=== PATIENT | male | born 1955 | race Caucasian/White ===

== ENCOUNTER 2022-05-18 08:14 | Day surgery (SDC) | payer MEDICARE, MEDICAID ==
[2022-05-18] VITALS (12 sets, daily range): BP systolic 95–148; BP diastolic 49–76
[~2022-05-18] VITALS: Ht 175.3 cm; Wt 104.4 kg
[2022-05-18] MEDS ORDERED: normal saline 1,000 ML IV SCH (08:50)
[2022-05-18] MEDS ORDERED: diphenhydrAMINE 25mg capsule PO PRN (08:50)
[2022-05-18 09:17] LABS: BASOPHILS % (AUTO) 0.4 % (0-1); EOSINOPHILS # (AUTO) 0.1 X10'3 (0-0.9); EOSINOPHILS % (AUTO) 1.7 % (0-6); HEMATOCRIT 34.6 % (42.0-52.0); HEMOGLOBIN 11.9 g/dl (14.0-17.9); LYMPHOCYTES # (AUTO) 1.1 X10'3 (1.1-4.8); LYMPHOCYTES % (AUTO) 21.7 % (21-51); MEAN CORPUSCULAR HGB CONC 34.2 g/dL (33.0-36.5); MEAN CORPUSCULAR VOLUME 90.5 FL (78-98); MONOCYTES # (AUTO) 0.4 X10'3 (0-0.9); MONOCYTES % (AUTO) 7.2 % (2-12); NEUTROPHILS # (AUTO) 3.5 X10'3 (1.8-7.7); PLATELET COUNT 123 X10'3 (140-440); RED BLOOD COUNT 3.82 X10'6 (4.70-6.10); RED CELL DISTRIBUTION WIDTH 13.3 % (11.5-14.5); WHITE BLOOD COUNT 5.1 X10'3 (4.5-11.0)
[2022-05-18] MEDS ORDERED: ONDA4TAB12 PO (09:25)
[2022-05-18] MEDS ORDERED: ASPI-1265 PO (09:25)
[2022-05-18] MEDS ORDERED: TIZA4CAP6 PO (09:25)
[2022-05-18] MEDS ORDERED: ZOLP5TAB2 PO (09:25)
[2022-05-18] MEDS ORDERED: AMYL1CAP54 PO (09:25)
[2022-05-18] MEDS ORDERED: [UNRECOGNIZED DRUG - CODE] PO (09:25)
[2022-05-18] MEDS ORDERED: ISOS30TA84 PO (09:25)
[2022-05-18] MEDS ORDERED: RILP25TA PO (09:25)
[2022-05-18] MEDS ORDERED: LORA10TA7 PO (09:25)
[2022-05-18] MEDS ORDERED: OXYC-657 PO (09:25)
[2022-05-18] MEDS ORDERED: PRAZ2CAP2 PO (09:25)
[2022-05-18] MEDS ORDERED: SERT25TA84 PO (09:25)
[2022-05-18] MEDS ORDERED: OMEP10CA5 PO (09:25)
[2022-05-18] MEDS ORDERED: [UNRECOGNIZED DRUG - CODE] PO (09:25)
[2022-05-18] MEDS ORDERED: [UNRECOGNIZED DRUG - OTHER] (09:25)
[2022-05-18] MEDS ORDERED: HYDR-3965 PO (09:25)
[2022-05-18 09:28] LABS: ALBUMIN 3.4 G/DL (3.4-5.0); ANION GAP 7 (8-16); BLOOD UREA NITROGEN 15 MG/DL (7-18); BUN/CREATININE RATIO 13.3 (5.4-32.0); CHLORIDE 108 MMOL/L (99-107); CREATININE 1.13 MG/DL (0.60-1.10); GLUCOSE 116 MG/DL (70-104); MAGNESIUM 1.9 MG/DL (1.5-2.4); POTASSIUM 3.7 MMOL/L (3.5-5.1); SODIUM 144 MMOL/L (135-145); eGFR 65 ML/MIN
[2022-05-18] MEDS ORDERED: midazolam 1 mg/ML 2ml injection ONE ×4 (09:57→11:15)
[2022-05-18] MEDS ORDERED: fentaNYL/PF 50MCG/1 ML 2ML syringe ONE (09:57)
[2022-05-18] MEDS ORDERED: heparin 1,000unit/ml 10ml vial 10 ML ONE (09:57)
[2022-05-18] MEDS ORDERED: LIDOcaine 1% 30ml preserv. free vial ONE (09:57)
[2022-05-18] MEDS ORDERED: iohexol 350MG/ML 100ml bottle IV ONE ×3 (09:57→11:31)
[2022-05-18] MEDS ORDERED: HYDROmorphone 1 mg/ml syringe ONE (10:40)
[2022-05-18] MEDS ORDERED: nitroGLYCERIN-Tridil 50MG/D5W 250 ML IV ONE (11:35)
[2022-05-18] MEDS ORDERED: ticagrelor 90mg tablet ONE (11:44)
[2022-05-18] MEDS ORDERED: ondansetron/PF 4mg/2ml inj IV PRN (12:20)
[2022-05-18] MEDS ORDERED: HYDROcodone/acetaminophen 5mg/325mg tablet PO PRN (12:20)
[2022-05-18] MEDS ORDERED: normal saline 1000ml 1,000 ML IV SCH (12:20)
[2022-05-18] MEDS ORDERED: proCHLORperazine 10 MG/2 ml inj IV PRN (12:20)
[2022-05-18] MEDS ORDERED: HYDROcodone/acetaminophen 10/325mg tab PO PRN (12:20)
[2022-05-18] MEDS ORDERED: pantoprazole 40mg Tablet.DR PO ONE (12:25)
[2022-05-18] MEDS ORDERED: mag hydrox/Alum hydrox/simeth 30ml oral suspension PO ONE (14:00)
== END 2022-05-18 18:12 | disposition home or self-care (01) ==
LOC: SSTAY O 08:14
PROVIDERS: ATTEND Internal Medicine Cardiovascular Disease
DX: I25.10 Atherosclerotic heart disease of native coronary artery without angina pectoris (principal); I25.82 Chronic total occlusion of coronary artery; I48.91 Unspecified atrial fibrillation; I10 Essential (primary) hypertension; E78.5 Hyperlipidemia, unspecified; Z79.899 Other long term (current) drug therapy; Z98.890 Other specified postprocedural states
CPT/HCPCS: 36415; 80048; 83735; 85025; 85610; 92978; 93005; 93459; 99152; 99153; C1725; C1751; C1753; C1760; C1769; C1874; C1894; C9600; J1170; J1644; J2250; J3010; J3490; J7030; Q0163; Q9967; A4620; A6258

== ENCOUNTER 2022-05-19 13:38 | Emergency (ER) | payer MEDICARE, MEDICAID ==
[~2022-05-19] VITALS: Ht 175.3 cm; Wt 104.5 kg
[~2022-05-19 13:38] MED LIST: AMYL1CAP54 PO; ASPI-1265 PO; HYDR-3965 PO; ISOS30TA84 PO; LORA10TA7 PO; OMEP10CA5 PO; ONDA4TAB12 PO; OXYC-657 PO; PRAZ2CAP2 PO; RILP25TA PO; SERT25TA84 PO; TIZA4CAP6 PO; ZOLP5TAB2 PO; [UNRECOGNIZED DRUG - CODE] PO; [UNRECOGNIZED DRUG - CODE] PO; [UNRECOGNIZED DRUG - OTHER]
[2022-05-19 15:51] VITALS: BP 164/77
== END 2022-05-19 16:00 | disposition home or self-care (01) ==
LOC: ER 13:39
DX: S30.1XXA Contusion of abdominal wall, initial encounter (principal); Z88.1 Allergy status to other antibiotic agents; Z88.8 Allergy status to other drugs, medicaments and biological substances; X58.XXXA Exposure to other specified factors, initial encounter; Y93.89 Activity, other specified; Y92.89 Other specified places as the place of occurrence of the external cause; Y99.8 Other external cause status
CPT/HCPCS: 99281

== ENCOUNTER 2022-05-26 08:45 | Emergency (ER) | payer MEDICARE, MEDICAID ==
[~2022-05-26] VITALS: Ht 175.3 cm; Wt 104.0 kg
[2022-05-26 09:46] LABS: BASOPHILS % (AUTO) 0.2 % (0-1); EOSINOPHILS # (AUTO) 0.1 X10'3 (0-0.9); EOSINOPHILS % (AUTO) 0.8 % (0-6); HEMATOCRIT 40.4 % (42.0-52.0); HEMOGLOBIN 13.9 g/dl (14.0-17.9); LYMPHOCYTES # (AUTO) 1.2 X10'3 (1.1-4.8); LYMPHOCYTES % (AUTO) 18.5 % (21-51); MEAN CORPUSCULAR HEMOGLOBIN 30.7 PG (27.0-31.0); MEAN CORPUSCULAR HGB CONC 34.4 g/dL (33.0-36.5); MEAN CORPUSCULAR VOLUME 89.1 FL (78-98); MEAN PLATELET VOLUME 7.3 FL (7.4-10.4); MONOCYTES # (AUTO) 0.4 X10'3 (0-0.9); NEUTROPHILS % (AUTO) 74.5 % (42-75); PLATELET COUNT 148 X10'3 (140-440); RED BLOOD COUNT 4.54 X10'6 (4.70-6.10); RED CELL DISTRIBUTION WIDTH 13.5 % (11.5-14.5); WHITE BLOOD COUNT 6.8 X10'3 (4.5-11.0)
[2022-05-26 10:06] LABS: ALANINE AMINOTRANSFERASE 31 U/L (12-78); ALBUMIN 4.1 G/DL (3.4-5.0); ALBUMIN/GLOBULIN RATIO 1.1 (1.1-1.5); ALKALINE PHOSPHATASE 127 IU/L (46-116); ANION GAP 10 (8-16); ASPARTATE AMINO TRANSFERASE 14 U/L (10-37); BILIRUBIN,TOTAL 0.8 MG/DL (0.1-1.0); BLOOD UREA NITROGEN 17 MG/DL (7-18); BUN/CREATININE RATIO 11.1 (5.4-32.0); CALCIUM 8.6 MG/DL (8.5-10.1); CHLORIDE 100 MMOL/L (99-107); CREATININE 1.53 MG/DL (0.60-1.10); GLUCOSE 116 MG/DL (70-104); POTASSIUM 3.1 MMOL/L (3.5-5.1); SODIUM 141 MMOL/L (135-145); TOTAL CARBON DIOXIDE 31.4 MMOL/L (24-32); TOTAL PROTEIN 7.7 G/DL (6.4-8.2); eGFR 46 ML/MIN
[2022-05-26] MEDS ORDERED: potassium chloride 10mEq ER tablet PO SCH (11:25)
[2022-05-26 12:10] LABS: MAGNESIUM 1.7 MG/DL (1.5-2.4)
[2022-05-26] MEDS ORDERED: CLOP75TA15 PO ×2 (12:24→14:13)
[2022-05-26 12:27] VITALS: BP 112/56
[2022-05-26 13:10] LABS: CLARITY,URINE CLEAR (Clear); COLOR,URINE YELLOW (Yellow); GLUCOSE, URINE NEGATIVE (Neg); KETONES,URINE NEGATIVE (Neg); LEUKOCYTE ESTERASE ,URINE NEGATIVE (Neg); NITRITES, URINE NEGATIVE (Neg); OCCULT BLOOD,URINE NEGATIVE (Neg); PROTEIN,URINE NEGATIVE (Neg); UROBILINOGEN,URINE 0.2 E.U/dL (0.2-1.0)
[2022-05-26 13:30] LABS: UA COLLECTION TYPE CLN CATCH MIDSTREAM
== END 2022-05-26 15:16 | disposition home or self-care (01) ==
LOC: ER 08:46
DX: R06.02 Shortness of breath (principal); Z20.822 Contact with and (suspected) exposure to COVID-19; I50.9 Heart failure, unspecified; Z88.0 Allergy status to penicillin; Z88.8 Allergy status to other drugs, medicaments and biological substances; Z79.82 Long term (current) use of aspirin; Z79.899 Other long term (current) drug therapy
CPT/HCPCS: 36415; 71045; 80053; 81003; 83735; 83880; 84484; 85025; 87635; 93005; 99285; C9803

== ENCOUNTER 2022-07-26 16:42 | Emergency (ER) | payer MEDICARE, MEDICAID ==
[~2022-07-26] VITALS: Ht 175.3 cm; Wt 103.6 kg
[~2022-07-26 16:42] MED LIST changes: +CLOP75TA15 PO
[2022-07-26 17:42] LABS: BASOPHILS % (AUTO) 0.3 % (0-1); EOSINOPHILS % (AUTO) 0.4 % (0-6); HEMATOCRIT 39.1 % (42.0-52.0); HEMOGLOBIN 13.4 g/dl (14.0-17.9); LYMPHOCYTES # (AUTO) 1.9 X10'3 (1.1-4.8); LYMPHOCYTES % (AUTO) 19.9 % (21-51); MEAN CORPUSCULAR HEMOGLOBIN 31.2 PG (27.0-31.0); MEAN CORPUSCULAR HGB CONC 34.2 g/dL (33.0-36.5); MEAN CORPUSCULAR VOLUME 91.3 FL (78-98); MEAN PLATELET VOLUME 7.1 FL (7.4-10.4); MONOCYTES # (AUTO) 0.5 X10'3 (0-0.9); MONOCYTES % (AUTO) 5.4 % (2-12); NEUTROPHILS # (AUTO) 6.9 X10'3 (1.8-7.7); PLATELET COUNT 139 X10'3 (140-440); RED BLOOD COUNT 4.28 X10'6 (4.70-6.10); RED CELL DISTRIBUTION WIDTH 14.6 % (11.5-14.5); WHITE BLOOD COUNT 9.4 X10'3 (4.5-11.0)
[2022-07-26 17:48] LABS: ALANINE AMINOTRANSFERASE 23 U/L (12-78); ALBUMIN 3.8 G/DL (3.4-5.0); ALBUMIN/GLOBULIN RATIO 1.3 (1.1-1.5); ALKALINE PHOSPHATASE 100 IU/L (46-116); ANION GAP 5 (8-16); ASPARTATE AMINO TRANSFERASE 12 U/L (10-37); BILIRUBIN,TOTAL 0.5 MG/DL (0.1-1.0); BLOOD UREA NITROGEN 20 MG/DL (7-18); BUN/CREATININE RATIO 18.5 (5.4-32.0); CALCIUM 8.7 MG/DL (8.5-10.1); CHLORIDE 103 MMOL/L (99-107); CREATININE 1.08 MG/DL (0.60-1.10); GLUCOSE 110 MG/DL (70-104); SODIUM 139 MMOL/L (135-145); TOTAL CARBON DIOXIDE 31.1 MMOL/L (24-32); TOTAL PROTEIN 6.7 G/DL (6.4-8.2); eGFR 69 ML/MIN
[2022-07-26] MEDS ORDERED: oxyCODONE SR 10mg (sust. release) tab PO ONE (18:05)
[2022-07-26] MEDS ORDERED: nitroGLYCERIN 0.4mg SUBLingual tab SL PRN (18:05)
[2022-07-26 21:26] VITALS: BP 131/72
== END 2022-07-26 21:15 | disposition home or self-care (01) ==
LOC: ER 16:42
DX: I20.8 Other forms of angina pectoris (principal); I10 Essential (primary) hypertension; Z88.1 Allergy status to other antibiotic agents; Z88.8 Allergy status to other drugs, medicaments and biological substances; Z79.82 Long term (current) use of aspirin; Z79.899 Other long term (current) drug therapy; Z79.1 Long term (current) use of non-steroidal anti-inflammatories (NSAID); Z79.2 Long term (current) use of antibiotics
CPT/HCPCS: 36415; 71045; 80053; 83880; 84484; 85025; 93005; 99285

== ENCOUNTER 2022-08-18 11:41 | Observation (INO) | payer MEDICARE, MEDICAID ==
[~2022-08-18] VITALS: Ht 175.3 cm; Wt 100.0 kg
[~2022-08-18 11:41] MED LIST changes: +AMYL1CAP52 PO; -AMYL1CAP54 PO; -ASPI-1265 PO; +ASPI81TA52 PO; +ATOR-2 PO; +BICT1TAB PO; -CLOP75TA15 PO; +CLOP75TA34 PO; +ESCI-8 PO; +HYDR-3686 PO; +LISI5TAB22 PO; -RILP25TA PO; -SERT25TA84 PO; -TIZA4CAP6 PO; +TORS100T15 PO; -ZOLP5TAB2 PO; -[UNRECOGNIZED DRUG - CODE] PO; -[UNRECOGNIZED DRUG - CODE] PO; -[UNRECOGNIZED DRUG - OTHER]
--- NOTE | 2022-08-18 12:11 | NUR ---
EKG 1147 LM
[2022-08-18 13:19] LABS: BASOPHILS % (AUTO) 0.4 % (0-1); EOSINOPHILS # (AUTO) 0.1 X10'3 (0-0.9); EOSINOPHILS % (AUTO) 0.8 % (0-6); HEMATOCRIT 41.9 % (42.0-52.0); HEMOGLOBIN 13.9 g/dl (14.0-17.9); LYMPHOCYTES # (AUTO) 1.7 X10'3 (1.1-4.8); LYMPHOCYTES % (AUTO) 24.4 % (21-51); MEAN CORPUSCULAR HEMOGLOBIN 30.7 PG (27.0-31.0); MEAN CORPUSCULAR HGB CONC 33.1 g/dL (33.0-36.5); MEAN CORPUSCULAR VOLUME 92.7 FL (78-98); MEAN PLATELET VOLUME 6.9 FL (7.4-10.4); MONOCYTES # (AUTO) 0.4 X10'3 (0-0.9); NEUTROPHILS # (AUTO) 4.9 X10'3 (1.8-7.7); NEUTROPHILS % (AUTO) 68.4 % (42-75); PLATELET COUNT 147 X10'3 (140-440); RED BLOOD COUNT 4.52 X10'6 (4.70-6.10); RED CELL DISTRIBUTION WIDTH 14.2 % (11.5-14.5); WHITE BLOOD COUNT 7.1 X10'3 (4.5-11.0)
[2022-08-18 13:43] LABS: ALANINE AMINOTRANSFERASE 25 U/L (12-78); ALBUMIN 3.7 G/DL (3.4-5.0); ALBUMIN/GLOBULIN RATIO 1.1 (1.1-1.5); ALKALINE PHOSPHATASE 98 IU/L (46-116); ANION GAP 9 (8-16); ASPARTATE AMINO TRANSFERASE 15 U/L (10-37); BILIRUBIN,TOTAL 0.4 MG/DL (0.1-1.0); BLOOD UREA NITROGEN 13 MG/DL (7-18); BUN/CREATININE RATIO 12.1 (5.4-32.0); CALCIUM 8.7 MG/DL (8.5-10.1); CHLORIDE 105 MMOL/L (99-107); CREATININE 1.07 MG/DL (0.60-1.10); GLUCOSE 104 MG/DL (70-104); POTASSIUM 3.8 MMOL/L (3.5-5.1); SODIUM 142 MMOL/L (135-145); TOTAL CARBON DIOXIDE 27.9 MMOL/L (24-32); eGFR 69 ML/MIN
[2022-08-18] MEDS ORDERED: MAGN64TA8 PO (16:07)
[2022-08-18] MEDS ORDERED: HYDROcodone/acetaminophen 5mg/325mg tablet PO ONE (17:38)
[2022-08-18] MEDS ORDERED: hydrOXYzine 25 MG tablet PO PRN (18:00)
[2022-08-18] MEDS ORDERED: nitroGLYCERIN 0.4mg SUBLingual tab SL PRN (18:00)
[2022-08-18] MEDS ORDERED: magnesium hydroxide 30ml (MOM) UD suspension PO PRN (18:05)
[2022-08-18] MEDS ORDERED: HYDROcodone/acetaminophen 5mg/325mg tablet PO PRN (18:05)
[2022-08-18] MEDS ORDERED: potassium Cl 40MEQ/1/2NS 520ml 520 ML IV PRN (18:05)
[2022-08-18] MEDS ORDERED: HYDROcodone/acetaminophen 10/325mg tab PO PRN (18:05)
[2022-08-18] MEDS ORDERED: ondansetron/PF 4mg/2ml inj IV PRN (18:05)
[2022-08-18] MEDS ORDERED: mag hydrox/Alum hydrox/simeth 30ml oral suspension PO PRN (18:05)
[2022-08-18] MEDS ORDERED: bisacodyl 10mg suppository rectal RC PRN (18:05)
[2022-08-18] MEDS ORDERED: acetaminophen 325mg tablet PO PRN ×2 (18:05)
[2022-08-18] MEDS ORDERED: magnesium 4gm in 100ml NS 100 ML IV PRN (18:05)
[2022-08-18] MEDS ORDERED: diphenhydrAMINE 25mg capsule PO PRN (18:05)
[2022-08-18] MEDS ORDERED: potassium Cl 20 mEq SR tablet PO PRN ×2 (18:05)
[2022-08-18] MEDS ORDERED: magnesium Cl slow-release 64mg tablet PO PRN (18:05)
[2022-08-18 18:36] LABS: HEMOGLOBIN A1C 5.7 % (4.5-6.2)
[2022-08-18] MEDS ORDERED: K and/or MAG REPLACEMENT MC SCH (20:00)
[2022-08-18] MEDS: heparin, porcine 5000 units/ml vial SQ SCH (20:00)
[2022-08-18] MEDS ORDERED: MAGNESIUM CHLORIDE PO SCH (20:00)
[2022-08-18] MEDS ORDERED: regadenoson 0.4mg/5ml syringe IV PRN (20:17)
[2022-08-18] MEDS ORDERED: aminophylline 500mg/20ml vial IV PRN (20:17)
[2022-08-18] MEDS ORDERED: PERFLUTREN PROTEIN-A MICROSPHR (Optison) 0.22 MG/ML 3ML VIAL IV ONE (20:18)
[2022-08-18] MEDS ORDERED: metoprolol tartrate 1mg/ml inj IV PRN (20:20)
[2022-08-18] MEDS ORDERED: atorvastatin 20mg tablet PO SCH (21:00)
[2022-08-18] MEDS ORDERED: ESCITALOPRAM OXALATE 5 MG TABLET PO SCH (21:00)
[2022-08-18] MEDS ORDERED: prazosin 1mg capsule PO SCH (21:00)
[2022-08-18] MEDS ORDERED: [UNRECOGNIZED DRUG - OTHER] PO SCH (21:00)
[2022-08-18 22:07] LABS: CLARITY,URINE CLEAR (Clear); COLOR,URINE YELLOW (Yellow); GLUCOSE, URINE NEGATIVE (Neg); KETONES,URINE NEGATIVE (Neg); LEUKOCYTE ESTERASE ,URINE NEGATIVE (Neg); NITRITES, URINE NEGATIVE (Neg); OCCULT BLOOD,URINE NEGATIVE (Neg); PH,URINE 5.5 (4.8-8.0); PROTEIN,URINE NEGATIVE (Neg); UROBILINOGEN,URINE 0.2 E.U/dL (0.2-1.0)
[2022-08-18 22:10] LABS: UA COLLECTION TYPE NON-SPECIFIED
[2022-08-18] MEDS: OXYcodone (OXYCONTIN) Ext Release 15 MG TAB.SR.12H PO SCH (22:15)
[2022-08-18] MEDS: docusate sod 100mg capsule PO SCH (22:20)
[2022-08-19] VITALS (8 sets, daily range): BP systolic 129–176; BP diastolic 67–77
[2022-08-19 04:30] LABS: BASOPHILS # (AUTO) 0.1 X10'3 (0-0.2); BASOPHILS % (AUTO) 0.9 % (0-1); EOSINOPHILS # (AUTO) 0.1 X10'3 (0-0.9); EOSINOPHILS % (AUTO) 0.9 % (0-6); HEMATOCRIT 38.6 % (42.0-52.0); HEMOGLOBIN 13.1 g/dl (14.0-17.9); LYMPHOCYTES # (AUTO) 1.7 X10'3 (1.1-4.8); LYMPHOCYTES % (AUTO) 27.6 % (21-51); MEAN CORPUSCULAR HEMOGLOBIN 31.3 PG (27.0-31.0); MEAN CORPUSCULAR VOLUME 92.1 FL (78-98); MEAN PLATELET VOLUME 6.7 FL (7.4-10.4); MONOCYTES # (AUTO) 0.4 X10'3 (0-0.9); NEUTROPHILS # (AUTO) 3.9 X10'3 (1.8-7.7); NEUTROPHILS % (AUTO) 63.6 % (42-75); PLATELET COUNT 113 X10'3 (140-440); RED BLOOD COUNT 4.19 X10'6 (4.70-6.10); RED CELL DISTRIBUTION WIDTH 14.5 % (11.5-14.5); WHITE BLOOD COUNT 6.1 X10'3 (4.5-11.0)
[2022-08-19 04:37] LABS: ALANINE AMINOTRANSFERASE 24 U/L (12-78); ALBUMIN 3.4 G/DL (3.4-5.0); ALBUMIN/GLOBULIN RATIO 1.1 (1.1-1.5); ALKALINE PHOSPHATASE 91 IU/L (46-116); ANION GAP 6 (8-16); ASPARTATE AMINO TRANSFERASE 12 U/L (10-37); BILIRUBIN,TOTAL 0.4 MG/DL (0.1-1.0); BLOOD UREA NITROGEN 16 MG/DL (7-18); CALCIUM 8.7 MG/DL (8.5-10.1); CHLORIDE 104 MMOL/L (99-107); CHOL/HDL RATIO 2.9 (0.00-4.99); CHOLESTEROL 144 MG/DL (0-200); GLUCOSE 99 MG/DL (70-104); HDL CHOLESTEROL 49 MG/DL (35-60); LDL CHOLESTEROL 79 MG/DL (50-100); MAGNESIUM 2.1 MG/DL (1.5-2.4); PHOSPHORUS 3.7 MG/DL (2.3-4.5); POTASSIUM 3.6 MMOL/L (3.5-5.1); SODIUM 140 MMOL/L (135-145); TOTAL CARBON DIOXIDE 30.1 MMOL/L (24-32); TOTAL PROTEIN 6.4 G/DL (6.4-8.2); TRIGLYCERIDES 152 MG/DL (20-135); eGFR 75 ML/MIN
--- NOTE | 2022-08-19 07:10 | NUR ---
Patient in room PCU 3028. I have received report from Stewart and had the opportunity to ask questions and assume patient care.
--- NOTE | 2022-08-19 07:21 | NUR ---
Pt has $15, 2 credits, 1 car saleh, patient wants to keep them byhimself, refused to hospital registration keep them for him, AM RN notified. NPO sign is the front door outside wall.
[2022-08-19] MEDS: LIPASE PO SCH ×2 (08:00→13:00)
[2022-08-19] MEDS ORDERED: aspirin 81mg, enteric-coated 1 TAB TABLET.DR PO SCH (08:00)
[2022-08-19] MEDS ORDERED: pantoprazole 40mg Tablet.DR PO SCH (08:00)
[2022-08-19] MEDS ORDERED: loratadine 10mg tablet PO SCH (08:00)
[2022-08-19] MEDS: PROTEASE PO SCH ×2 (08:00→13:00)
[2022-08-19] MEDS: heparin, porcine 5000 units/ml vial SQ SCH (08:00)
[2022-08-19] MEDS ORDERED: isosorbide mononitrate 30mg tab.SR.24H PO SCH (08:00)
[2022-08-19] MEDS: AMYLASE PO SCH ×2 (08:00→13:00)
[2022-08-19] MEDS ORDERED: clopidogrel 75mg tablet PO SCH (08:00)
[2022-08-19] MEDS ORDERED: aminophylline inj. 0 ML IV ONE (09:18)
--- NOTE | 2022-08-19 11:20 | NUR ---
Message: [email or web address], THE [facility] REPORT IS AVAILABLE ON [id number]. PAGING OUT TO ECHO NOW TO HAVE ECHO DONE, ORLIN
[2022-08-19] MEDS: docusate sod 100mg capsule PO SCH (11:34)
[2022-08-19] MEDS: OXYcodone (OXYCONTIN) Ext Release 15 MG TAB.SR.12H PO SCH (11:35)
--- NOTE | 2022-08-19 14:59 | NUR ---
Reviewed discharge instructions with pt. Pt verbalized understanding. Pt very thankful for care received, has a follow up appt with Dr. Keita on 08/28/22, is alert and oriented. Pt expresses a readiness to DC home. Pt was able to dress himself and was wheeled downstairs to drive home. Pt's medication stored in the pharmacy was returned to him prior to DC.
== END 2022-08-19 15:06 | disposition home or self-care (01) ==
LOC: ER 11:41 → ED HOLD 18:07 → EDBEDREQ 08-19 04:24 → PCU 3S 08-19 05:45
PROVIDERS: ADMIT Family Medicine; ATTEND Family Medicine
DX: R07.89 Other chest pain (principal); I48.0 Paroxysmal atrial fibrillation; E78.5 Hyperlipidemia, unspecified; I25.119 Atherosclerotic heart disease of native coronary artery with unspecified angina pectoris; N40.0 Benign prostatic hyperplasia without lower urinary tract symptoms; G89.4 Chronic pain syndrome; F41.8 Other specified anxiety disorders; E78.00 Pure hypercholesterolemia, unspecified; I10 Essential (primary) hypertension; Z79.02 Long term (current) use of antithrombotics/antiplatelets; Z79.82 Long term (current) use of aspirin; Z79.899 Other long term (current) drug therapy; Z95.1 Presence of aortocoronary bypass graft; Z95.5 Presence of coronary angioplasty implant and graft
CPT/HCPCS: 36415; 71045; 78452; 80053; 80061; 81003; 83036; 83735; 83880; 84100; 84484; 85025; 87081; 93005; 93017; 93308; 99285; A9500; G0378; J2785; J0280

== ENCOUNTER 2022-10-08 09:52 | Observation (INO) | payer MEDICARE, MEDICAID ==
[~2022-10-08] VITALS: Ht 175.3 cm; Wt 103.2 kg
[2022-10-08] VITALS (10 sets, daily range): BP systolic 99–165; BP diastolic 58–82
[~2022-10-08 09:52] MED LIST changes: -ASPI81TA52 PO; -LISI5TAB22 PO; +MAGN64TA8 PO; -TORS100T15 PO
[2022-10-08] MEDS ORDERED: diphenhydrAMINE 25mg capsule PO PRN (10:15)
[2022-10-08] MEDS ORDERED: PANT20TA18 PO (10:44)
[2022-10-08] MEDS ORDERED: ASPI-280 PO (10:44)
[2022-10-08] MEDS ORDERED: MAGN250T11 PO (10:44)
[2022-10-08] MEDS ORDERED: NITR0.4T51 SL (10:44)
[2022-10-08] MEDS ORDERED: ERGO400C PO (10:44)
[2022-10-08] MEDS ORDERED: POTA99CA PO (10:44)
[2022-10-08] MEDS: normal saline 1,000 ML IV SCH ×2 (11:23→20:15)
[2022-10-08 11:45] LABS: BASOPHILS % (AUTO) 0.3 % (0-1); EOSINOPHILS % (AUTO) 0.7 % (0-6); HEMATOCRIT 41.6 % (42.0-52.0); HEMOGLOBIN 13.9 g/dl (14.0-17.9); LYMPHOCYTES # (AUTO) 1.5 X10'3 (1.1-4.8); LYMPHOCYTES % (AUTO) 23.6 % (21-51); MEAN CORPUSCULAR HEMOGLOBIN 30.4 PG (27.0-31.0); MEAN CORPUSCULAR HGB CONC 33.3 g/dL (33.0-36.5); MEAN CORPUSCULAR VOLUME 91.2 FL (78-98); MEAN PLATELET VOLUME 7.3 FL (7.4-10.4); MONOCYTES # (AUTO) 0.4 X10'3 (0-0.9); MONOCYTES % (AUTO) 6.4 % (2-12); NEUTROPHILS # (AUTO) 4.4 X10'3 (1.8-7.7); PLATELET COUNT 138 X10'3 (140-440); RED BLOOD COUNT 4.56 X10'6 (4.70-6.10); RED CELL DISTRIBUTION WIDTH 14.2 % (11.5-14.5); WHITE BLOOD COUNT 6.4 X10'3 (4.5-11.0)
[2022-10-08 12:12] LABS: ALBUMIN 3.9 G/DL (3.4-5.0); BLOOD UREA NITROGEN 10 MG/DL (7-18); BUN/CREATININE RATIO 9.5 (5.4-32.0); CREATININE 1.05 MG/DL (0.60-1.10); GLUCOSE 108 MG/DL (70-104); MAGNESIUM 2.1 MG/DL (1.5-2.4); SODIUM 140 MMOL/L (135-145); TOTAL CARBON DIOXIDE 32.8 MMOL/L (24-32); eGFR 71 ML/MIN
[2022-10-08 12:20] LABS: CALCIUM 8.6 MG/DL (8.5-10.1)
[2022-10-08 13:19] LABS: ANION GAP 4 (8-16); CHLORIDE 103 MMOL/L (99-107)
[2022-10-08] MEDS ORDERED: midazolam 1 mg/ML 2ml injection ONE ×2 (13:36→14:04)
[2022-10-08] MEDS ORDERED: LIDOcaine 1% 30ml preserv. free vial ONE (13:36)
[2022-10-08] MEDS ORDERED: iohexol 350 MG/ML 50ML vial IV ONE (13:36)
[2022-10-08] MEDS ORDERED: fentaNYL/PF 50MCG/1 ML 2ML syringe ONE ×2 (13:36→14:04)
[2022-10-08] MEDS ORDERED: heparin 1,000unit/ml 10ml vial 10 ML ONE (13:36)
[2022-10-08] MEDS ORDERED: iohexol 350MG/ML 100ml bottle IV ONE ×2 (13:37→14:29)
[2022-10-08] MEDS ORDERED: proCHLORperazine 10 MG/2 ml inj ONE (14:04)
[2022-10-08] MEDS ORDERED: clopidogrel 300mg tablet ONE (14:52)
[2022-10-08] MEDS ORDERED: hydrOXYzine 25 MG tablet PO PRN (16:00)
[2022-10-08] MEDS ORDERED: nitroGLYCERIN 0.4mg SUBLingual tab SL PRN (16:00)
[2022-10-08] MEDS ORDERED: HYDROcodone/acetaminophen 5mg/325mg tablet PO PRN (16:00)
--- NOTE | 2022-10-08 17:00 | NUR ---
Report to WILL Rasmussen-all questions answered-Pt transferred to Rm 3020 at [id number]
[2022-10-08] MEDS: LIPASE/PROTEASE/AMYLASE 4,200 unit CAPSULE.DR PO SCH (18:00)
[2022-10-08] MEDS: ondansetron 4mg rapidly disintigrating tab PO SCH (18:00)
[2022-10-08] MEDS: OXYcodone (OXYCONTIN) Ext Release 15 MG TAB.SR.12H PO SCH (20:00)
[2022-10-08] MEDS ORDERED: [UNRECOGNIZED DRUG - OTHER] PO SCH (21:00)
[2022-10-08] MEDS ORDERED: prazosin 1mg capsule PO SCH (21:00)
[2022-10-08] MEDS ORDERED: ESCITALOPRAM OXALATE 5 MG TABLET PO SCH (21:00)
[2022-10-08] MEDS: magnesium Cl slow-release 64mg tablet PO SCH (22:34)
[2022-10-09 02:00] VITALS: BP 163/75
[2022-10-09 07:00] VITALS: BP 130/80
[2022-10-09] MEDS ORDERED: aspirin 81mg tab.chew PO SCH (08:00)
[2022-10-09] MEDS ORDERED: cholecalciferol (vitamin D3) 400 unit (10mcg) tablet PO SCH (08:00)
[2022-10-09] MEDS ORDERED: magnesium oxide 400mg tablet PO SCH (08:00)
[2022-10-09] MEDS ORDERED: isosorbide mononitrate 30mg tab.SR.24H PO SCH (08:00)
[2022-10-09] MEDS ORDERED: pantoprazole 40mg Tablet.DR PO SCH (08:00)
[2022-10-09] MEDS ORDERED: clopidogrel 75mg tablet PO SCH (08:00)
[2022-10-09] MEDS ORDERED: loratadine 10mg tablet PO SCH (08:00)
[2022-10-09] MEDS: LIPASE/PROTEASE/AMYLASE 4,200 unit CAPSULE.DR PO SCH (08:21)
[2022-10-09] MEDS: magnesium Cl slow-release 64mg tablet PO SCH (08:22)
[2022-10-09] MEDS: ondansetron 4mg rapidly disintigrating tab PO SCH ×2 (08:23)
[2022-10-09] MEDS: OXYcodone (OXYCONTIN) Ext Release 15 MG TAB.SR.12H PO SCH (08:41)
== END 2022-10-09 08:45 | disposition home or self-care (01) ==
LOC: SSTAY O 09:52 → PCU 3S 18:10
PROVIDERS: ADMIT Internal Medicine Cardiovascular Disease; ATTEND Internal Medicine Cardiovascular Disease
DX: I25.10 Atherosclerotic heart disease of native coronary artery without angina pectoris (principal)
CPT/HCPCS: 36415; 80048; 83735; 85025; 85610; 93005; 93459; A6258; C1725; C1751; C1760; C1769; C1874; C1894; C9604; G0378; J0780; J1644; J2250; J3010; J3490; J7030; Q0163; Q9967; 99152; 99153; A4620

== ENCOUNTER 2023-01-30 13:44 | Inpatient (IN) | payer MEDICARE, MEDICAID ==
[~2023-01-30] VITALS: Ht 175.3 cm; Wt 104.5 kg
[~2023-01-30 13:44] MED LIST changes: +ASPI-280 PO; -ATOR-2 PO; +ERGO400C PO; +MAGN250T11 PO; +NITR0.4T51 SL; -OMEP10CA5 PO; +PANT20TA18 PO; +POTA99CA PO
[2023-01-30] MEDS ORDERED: aspirin 81mg tab.chew PO ONE (13:50)
[2023-01-30 14:06] LABS: BASOPHILS % (AUTO) 0.4 % (0-1); EOSINOPHILS # (AUTO) 0.1 X10'3 (0-0.9); EOSINOPHILS % (AUTO) 0.9 % (0-6); HEMOGLOBIN 12.5 g/dl (14.0-17.9); LYMPHOCYTES # (AUTO) 1.6 X10'3 (1.1-4.8); LYMPHOCYTES % (AUTO) 25.6 % (21-51); MEAN CORPUSCULAR HEMOGLOBIN 30.4 PG (27.0-31.0); MEAN CORPUSCULAR HGB CONC 33.6 g/dL (33.0-36.5); MEAN CORPUSCULAR VOLUME 90.4 FL (78-98); MEAN PLATELET VOLUME 6.8 FL (7.4-10.4); MONOCYTES # (AUTO) 0.5 X10'3 (0-0.9); MONOCYTES % (AUTO) 7.4 % (2-12); NEUTROPHILS # (AUTO) 4.2 X10'3 (1.8-7.7); NEUTROPHILS % (AUTO) 65.7 % (42-75); PLATELET COUNT 141 X10'3 (140-440); RED CELL DISTRIBUTION WIDTH 15.3 % (11.5-14.5); WHITE BLOOD COUNT 6.4 X10'3 (4.5-11.0)
[2023-01-30 14:19] LABS: ALANINE AMINOTRANSFERASE 22 U/L (12-78); ALBUMIN 3.7 G/DL (3.4-5.0); ALBUMIN/GLOBULIN RATIO 1.2 (1.1-1.5); ALKALINE PHOSPHATASE 118 IU/L (46-116); ANION GAP 4 (8-16); ASPARTATE AMINO TRANSFERASE 9 U/L (10-37); BILIRUBIN,TOTAL 0.6 MG/DL (0.1-1.0); BLOOD UREA NITROGEN 15 MG/DL (7-18); BUN/CREATININE RATIO 14.6 (10.0-20.0); CALCIUM 8.3 MG/DL (8.5-10.1); CHLORIDE 105 MMOL/L (99-107); CREATININE 1.03 MG/DL (0.60-1.10); GLUCOSE 100 MG/DL (70-104); POTASSIUM 3.6 MMOL/L (3.5-5.1); SODIUM 140 MMOL/L (135-145); TOTAL CARBON DIOXIDE 30.6 MMOL/L (24-32); TOTAL PROTEIN 6.7 G/DL (6.4-8.2); eGFR 72 ML/MIN
[2023-01-30 14:54] LABS: CLARITY,URINE CLEAR (Clear); GLUCOSE, URINE NEGATIVE (Neg); KETONES,URINE NEGATIVE (Neg); LEUKOCYTE ESTERASE ,URINE NEGATIVE (Neg); NITRITES, URINE NEGATIVE (Neg); OCCULT BLOOD,URINE NEGATIVE (Neg); PROTEIN,URINE NEGATIVE (Neg); UROBILINOGEN,URINE 0.2 E.U/dL (0.2-1.0)
[2023-01-30 14:56] LABS: COLOR,URINE YELLOW (Yellow)
[2023-01-30 15:00] LABS: UA COLLECTION TYPE VOIDED
[2023-01-30] MEDS ORDERED: HYDROcodone/acetaminophen 5mg/325mg tablet PO ONE (17:20)
[2023-01-30] MEDS ORDERED: ondansetron/PF 4mg/2ml inj IV PRN (20:20)
[2023-01-30] MEDS ORDERED: acetaminophen 325mg tablet PO PRN ×2 (20:20)
[2023-01-30] MEDS ORDERED: magnesium 2GM in 50ml NS 50 ML IV PRN (20:20)
[2023-01-30] MEDS ORDERED: magnesium hydroxide 30ml (MOM) UD suspension PO PRN (20:20)
[2023-01-30] MEDS ORDERED: diphenhydrAMINE 25mg capsule PO PRN (20:20)
[2023-01-30] MEDS ORDERED: potassium Cl 20 mEq SR tablet PO PRN ×2 (20:20)
[2023-01-30] MEDS ORDERED: potassium Cl 40MEQ/1/2NS 520ml 520 ML IV PRN (20:20)
[2023-01-30] MEDS ORDERED: HYDROcodone/acetaminophen 5mg/325mg tablet PO PRN (20:20)
[2023-01-30] MEDS ORDERED: normal saline 1000ml 1,000 ML IV SCH (20:20)
[2023-01-30] MEDS ORDERED: HYDROcodone/acetaminophen 10/325mg tab PO PRN (20:20)
[2023-01-30] MEDS ORDERED: magnesium Cl slow-release 64mg tablet PO PRN (20:20)
[2023-01-30] MEDS ORDERED: mag hydrox/Alum hydrox/simeth 30ml oral suspension PO PRN (20:20)
[2023-01-30] MEDS ORDERED: bisacodyl 10mg suppository rectal RC PRN (20:20)
[2023-01-30] MEDS ORDERED: magnesium 4gm in 100ml NS 100 ML IV PRN (20:20)
[2023-01-30] MEDS ORDERED: acetaminophen 650mg rectal suppository RC PRN (20:20)
[2023-01-30] MEDS ORDERED: morphine 2 MG/ML inj. syringe IV PRN ×2 (20:20)
[2023-01-30 21:30] VITALS: BP 163/67
--- NOTE | 2023-01-30 21:30 | NUR ---
Patient in room ORTHO 4015. I have received report from Isha SOLIS and had the opportunity to ask questions and assume patient care.
--- NOTE | 2023-01-30 21:30 | NUR ---
Pt was admitted at 2129 , alert and oriented, vitals were taken and he denies any chest pain. He was assessed and advised that the home medications he brought with him would be taken to the pharmacy and the hospitalist would review his med reconciliation and approve them for hospital use. His medications were sent to the pharmacy at this time. I contacted the hospitalist, Dr Garcia at 2230, 2300, 2330 to ask for the medications to be reconciled. At 233 the patient asked me if he could have his medications. I told him that I was waiting for his Dr to reconcile them and as soon as he did this I would be able to administer his meds. He asked me if I could get the bottle from the pharmacy so he could take one. I stated " No I cant do that. I have to wait for the Dr to review them so I can administer them". He then stated " If I can't get my meds in 30 minutes I am going to leave". I told him that I would call the Dr again and see where he was at with that. I called Dr Garcia again at 2349. He stated he couldn't access the med rec and to call the pharmacy to fix it. I called the pharmacy at [phone]. The pharmacy said " He should have access to the med rec that it might be an IT issue" Dr Garcia was contacted again and told the med rec was ready", The charge nurse printed a paper mar (tms)to show him and went to the unit he was in and showed him. He signed off on it but when the charge nurse came back the patient had pulled his IV out (IV was intact) and was stating he wanted to leave AMA. During this time the patient stated " He was going to tiffanie the nurse and hospital for delaying his medications" Dr Garcia and the nursing facilities maintenance supervisor were informed. When he was given the AMA paperwork he refused to sign. Nursing facilities maintenance supervisor was contacted and advised us that two nurses can witness. Patients home meds were obtained from the pharmacy and given back to him and he left at 0055
[2023-01-31] MEDS ORDERED: HYDROcodone/acetaminophen 5mg/325mg tablet PO PRN (00:40)
[2023-01-31] MEDS ORDERED: hydrOXYzine 25 MG tablet PO PRN (00:40)
[2023-01-31] MEDS ORDERED: [UNRECOGNIZED DRUG - OTHER] PO SCH (00:46)
[2023-01-31] MEDS ORDERED: heparin, porcine 5000 units/ml vial SQ SCH (08:00)
[2023-01-31] MEDS ORDERED: PROTEASE PO SCH (08:00)
[2023-01-31] MEDS ORDERED: non-formulary drug (Pantoprazole Sodium (Protonix) 1 TAB) PO SCH (08:00)
[2023-01-31] MEDS ORDERED: OXYcodone (OXYCONTIN) Ext Release 15 MG TAB.SR.12H PO SCH (08:00)
[2023-01-31] MEDS ORDERED: ondansetron 4mg rapidly disintigrating tab PO SCH (08:00)
[2023-01-31] MEDS ORDERED: docusate sod 100mg capsule PO SCH (08:00)
[2023-01-31] MEDS ORDERED: ERGOCALCIFEROL PO SCH (08:00)
[2023-01-31] MEDS ORDERED: LIPASE PO SCH (08:00)
[2023-01-31] MEDS ORDERED: AMYLASE PO SCH (08:00)
[2023-01-31] MEDS ORDERED: K and/or MAG REPLACEMENT MC SCH (08:00)
[2023-01-31] MEDS ORDERED: loratadine 10mg tablet PO SCH (08:00)
[2023-01-31] MEDS ORDERED: non-formulary drug (Escitalopram Oxalate 1 TAB) PO SCH (21:00)
== END 2023-01-31 00:45 | disposition left against medical advice (07) | DRG 303 ==
LOC: ER 13:45 → UNDOADMIN 20:20 → ED HOLD 20:20 → ORTHO 4S 21:45 → ED HOLD 21:45 → UNDODISIN 01-31 00:45
PROVIDERS: ADMIT Family Medicine; ATTEND Family Medicine
DX: I25.118 Atherosclerotic heart disease of native coronary artery with other forms of angina pectoris (principal); E78.00 Pure hypercholesterolemia, unspecified; G89.29 Other chronic pain; I10 Essential (primary) hypertension; K21.9 Gastro-esophageal reflux disease without esophagitis; F32.A Depression, unspecified; M54.9 Dorsalgia, unspecified; N40.0 Benign prostatic hyperplasia without lower urinary tract symptoms; Z53.29 Procedure and treatment not carried out because of patient's decision for other reasons; Z80.1 Family history of malignant neoplasm of trachea, bronchus and lung; I25.2 Old myocardial infarction; Z82.49 Family history of ischemic heart disease and other diseases of the circulatory system; Z85.048 Personal history of other malignant neoplasm of rectum, rectosigmoid junction, and anus; Z85.89 Personal history of malignant neoplasm of other organs and systems; Z88.1 Allergy status to other antibiotic agents; Z95.1 Presence of aortocoronary bypass graft; Z95.5 Presence of coronary angioplasty implant and graft; Z88.8 Allergy status to other drugs, medicaments and biological substances; Z79.899 Other long term (current) drug therapy
CPT/HCPCS: 36415; 71045; 80053; 81003; 83735; 83880; 84484; 85025; 87081; 99285; G0378; J2270; J7030

== ENCOUNTER 2023-03-06 19:17 | Emergency (ER) | payer MEDICARE, MEDICAID ==
[~2023-03-06] VITALS: Ht 175.3 cm; Wt 95.5 kg
[~2023-03-06 19:17] MED LIST changes: -MAGN64TA8 PO; -POTA99CA PO
[2023-03-06 19:40] LABS: BASOPHILS % (AUTO) 0.4 % (0-1); EOSINOPHILS # (AUTO) 0.1 X10'3 (0-0.9); EOSINOPHILS % (AUTO) 0.9 % (0-6); HEMATOCRIT 40.3 % (42.0-52.0); HEMOGLOBIN 13.3 g/dl (14.0-17.9); LYMPHOCYTES # (AUTO) 2.5 X10'3 (1.1-4.8); LYMPHOCYTES % (AUTO) 25.4 % (21-51); MEAN CORPUSCULAR HEMOGLOBIN 29.6 PG (27.0-31.0); MEAN CORPUSCULAR HGB CONC 33.1 g/dL (33.0-36.5); MEAN CORPUSCULAR VOLUME 89.4 FL (78-98); MEAN PLATELET VOLUME 7.1 FL (7.4-10.4); MONOCYTES # (AUTO) 0.7 X10'3 (0-0.9); MONOCYTES % (AUTO) 7.4 % (2-12); NEUTROPHILS # (AUTO) 6.4 X10'3 (1.8-7.7); NEUTROPHILS % (AUTO) 65.9 % (42-75); PLATELET COUNT 192 X10'3 (140-440); RED CELL DISTRIBUTION WIDTH 14.7 % (11.5-14.5); WHITE BLOOD COUNT 9.8 X10'3 (4.5-11.0)
[2023-03-06 19:54] LABS: ALANINE AMINOTRANSFERASE 22 U/L (12-78); ALBUMIN 3.9 G/DL (3.4-5.0); ALBUMIN/GLOBULIN RATIO 1.3 (1.1-1.5); ALKALINE PHOSPHATASE 123 IU/L (46-116); ANION GAP 9 (8-16); ASPARTATE AMINO TRANSFERASE 11 U/L (10-37); BILIRUBIN,TOTAL 0.3 MG/DL (0.1-1.0); BLOOD UREA NITROGEN 13 MG/DL (7-18); BUN/CREATININE RATIO 10.7 (10.0-20.0); CALCIUM 8.7 MG/DL (8.5-10.1); CHLORIDE 104 MMOL/L (99-107); CREATININE 1.22 MG/DL (0.60-1.10); GLUCOSE 127 MG/DL (70-104); POTASSIUM 3.1 MMOL/L (3.5-5.1); SODIUM 139 MMOL/L (135-145); TOTAL CARBON DIOXIDE 25.6 MMOL/L (24-32); eGFR 59 ML/MIN
[2023-03-06] MEDS ORDERED: potassium Cl 20 mEq SR tablet PO STA (22:32)
[2023-03-06 22:33] VITALS: BP 112/57
[2023-03-06] MEDS ORDERED: ondansetron 4mg rapidly disintigrating tab PO ONE (22:40)
[2023-03-06] MEDS ORDERED: PRED20TA PO (22:56)
[2023-03-06] MEDS ORDERED: CLIN-97 PO (22:56)
== END 2023-03-06 23:10 | disposition home or self-care (01) ==
LOC: ER 19:18
DX: J02.9 Acute pharyngitis, unspecified (principal); E87.6 Hypokalemia; E78.00 Pure hypercholesterolemia, unspecified; Z88.1 Allergy status to other antibiotic agents; Z91.018 Allergy to other foods; Z88.8 Allergy status to other drugs, medicaments and biological substances
CPT/HCPCS: 36415; 71045; 80053; 83880; 84484; 85025; 93005; 99285

== ENCOUNTER 2023-08-01 17:48 | Emergency (ER) | payer MEDICARE, MEDICAID ==
[~2023-08-01] VITALS: Ht 175.3 cm; Wt 104.5 kg
[~2023-08-01 17:48] MED LIST changes: +CLIN-97 PO
[2023-08-01 18:33] LABS: BASOPHILS % (AUTO) 0.3 % (0-1); EOSINOPHILS # (AUTO) 0.1 X10'3 (0-0.9); EOSINOPHILS % (AUTO) 0.9 % (0-6); HEMATOCRIT 35.9 % (42.0-52.0); HEMOGLOBIN 12.1 g/dl (14.0-17.9); LYMPHOCYTES # (AUTO) 1.4 X10'3 (1.1-4.8); LYMPHOCYTES % (AUTO) 20.7 % (21-51); MEAN CORPUSCULAR HEMOGLOBIN 29.9 PG (27.0-31.0); MEAN CORPUSCULAR HGB CONC 33.9 g/dL (33.0-36.5); MEAN CORPUSCULAR VOLUME 88.3 FL (78-98); MEAN PLATELET VOLUME 7.4 FL (7.4-10.4); MONOCYTES # (AUTO) 0.4 X10'3 (0-0.9); MONOCYTES % (AUTO) 6.2 % (2-12); NEUTROPHILS # (AUTO) 4.9 X10'3 (1.8-7.7); NEUTROPHILS % (AUTO) 71.9 % (42-75); PLATELET COUNT 120 X10'3 (140-440); RED BLOOD COUNT 4.06 X10'6 (4.70-6.10); RED CELL DISTRIBUTION WIDTH 13.8 % (11.5-14.5); WHITE BLOOD COUNT 6.9 X10'3 (4.5-11.0)
[2023-08-01 18:54] LABS: ALANINE AMINOTRANSFERASE 19 U/L (12-78); ALBUMIN 3.8 G/DL (3.4-5.0); ALBUMIN/GLOBULIN RATIO 1.4 (1.1-1.5); ALKALINE PHOSPHATASE 116 IU/L (46-116); ANION GAP 3 (8-16); ASPARTATE AMINO TRANSFERASE 13 U/L (10-37); BILIRUBIN,TOTAL 0.8 MG/DL (0.1-1.0); BLOOD UREA NITROGEN 10 MG/DL (7-18); BUN/CREATININE RATIO 8.9 (10.0-20.0); CALCIUM 8.9 MG/DL (8.5-10.1); CHLORIDE 105 MMOL/L (99-107); CREATININE 1.12 MG/DL (0.60-1.10); GLUCOSE 92 MG/DL (70-104); POTASSIUM 4.2 MMOL/L (3.5-5.1); SODIUM 140 MMOL/L (135-145); TOTAL PROTEIN 6.6 G/DL (6.4-8.2); eCRCL 65 ML/MIN; eGFR 66 ML/MIN
[2023-08-01 19:01] LABS: PRO BRAIN NATRIURETIC PEPTIDE 364 PG/ML (0-125)
[2023-08-01] MEDS ORDERED: morphine ER 15mg tablet PO STA (20:23)
[2023-08-01 20:45] VITALS: BP 133/75; PULSE 54; RESP 18; TEMP 98.7; O2SAT 98
== END 2023-08-01 20:57 | disposition home or self-care (01) ==
LOC: ER 17:48
DX: R07.9 Chest pain, unspecified (principal)
CPT/HCPCS: 36415; 71045; 80053; 83880; 84484; 85025; 93005; 99285

== ENCOUNTER 2023-11-04 10:54 | Outpatient (CLI) | payer MEDICARE, MEDICAID ==
[~2023-11-04 10:54] MED LIST changes: +ATOR20TA66 PO; -CLIN-97 PO; -ERGO400C PO; -ESCI-8 PO; -HYDR-3686 PO; -LORA10TA7 PO; -MAGN250T11 PO; -PANT20TA18 PO; -PRAZ2CAP2 PO
[2023-11-05] MEDS ORDERED: GADOTERATE MEGLUMINE 7.5 MMOL/15 ML VIAL IV ONE (10:06)
== END 2023-11-04 23:59 | disposition home or self-care (01) ==
LOC: RAD 10:54
PROVIDERS: ATTEND Psychiatry & Neurology Neurology
DX: G31.1 Senile degeneration of brain, not elsewhere classified (principal); I67.9 Cerebrovascular disease, unspecified; R90.82 White matter disease, unspecified
CPT/HCPCS: 70553; A9575

== ENCOUNTER → 2023-11-22 | Outpatient (CLI) | payer MEDICARE, MEDICAID ==
[~2023-11-22] MED LIST changes: +iohexol 350MG/ML 100ml bottle IV ONE
== END | disposition home or self-care (01) ==
LOC: RAD 11:40
PROVIDERS: ATTEND Psychiatry & Neurology Neurology
DX: I65.23 Occlusion and stenosis of bilateral carotid arteries (principal); I70.8 Atherosclerosis of other arteries; M25.78 Osteophyte, vertebrae; M47.812 Spondylosis without myelopathy or radiculopathy, cervical region; G93.89 Other specified disorders of brain
CPT/HCPCS: 70450; 70496; 70498; 93880; J3490; Q9967

== ENCOUNTER 2023-12-16 07:57 | Day surgery (SDC) | payer MEDICARE, MEDICAID ==
[2023-12-16] VITALS (10 sets, daily range): BP systolic 96–151; BP diastolic 49–68; PULSE 42–60; RESP 16; TEMP 98.2; O2SAT 89–97
[~2023-12-16] VITALS: Ht 175.3 cm; Wt 103.3 kg
[~2023-12-16 07:57] MED LIST changes: -iohexol 350MG/ML 100ml bottle IV ONE
[2023-12-16] MEDS ORDERED: ATOR-2 PO (08:50)
[2023-12-16] MEDS ORDERED: PRAZ2CAP2 PO (08:50)
[2023-12-16] MEDS ORDERED: HYDR-3686 PO (08:50)
[2023-12-16] MEDS ORDERED: MELO-102 PO (08:50)
[2023-12-16] MEDS ORDERED: PREG75CA76 PO (08:50)
[2023-12-16] MEDS ORDERED: PANT20TA18 PO (08:50)
[2023-12-16] MEDS ORDERED: HYDR-3972 PO (08:50)
[2023-12-16] MEDS: diphenhydrAMINE 25mg capsule PO PRN (09:55)
[2023-12-16] MEDS: sodium bicarbonate 1meq/ml syr 150 ML in dextrose 5%-water 1,000 ML IV SCH (09:57)
[2023-12-16] MEDS: normal saline 1,000 ML IV SCH (09:58)
[2023-12-16] MEDS ORDERED: LIDOcaine 1% 30ml preserv. free vial ONE (11:59)
[2023-12-16] MEDS ORDERED: midazolam 1 mg/ML 2ml injection ONE ×2 (11:59→12:35)
[2023-12-16] MEDS ORDERED: fentaNYL/PF 50MCG/1 ML 2ML syringe ONE ×2 (12:00→12:35)
[2023-12-16] MEDS ORDERED: iohexol 350 MG/ML 50ML vial IV ONE (12:00)
[2023-12-16] MEDS ORDERED: iohexol 350MG/ML 100ml bottle IV ONE ×2 (12:00→13:01)
[2023-12-16] MEDS ORDERED: heparin 1,000unit/ml 10ml vial 10 ML ONE (12:00)
[2023-12-16] MEDS ORDERED: LIDOcaine 1% W/epiNEPHrine 1:100,000 20ml vial ONE (12:02)
[2023-12-16] MEDS ORDERED: proCHLORperazine 10 MG/2 ml inj ONE (12:35)
[2023-12-16] MEDS ORDERED: HYDROmorphone 1 mg/ml syringe ONE ×2 (12:51→13:08)
[2023-12-16] MEDS ORDERED: ondansetron/PF 4mg/2ml inj IV PRN (13:55)
[2023-12-16] MEDS ORDERED: proCHLORperazine 10 MG/2 ml inj IV PRN (14:00)
[2023-12-16] MEDS ORDERED: HYDROcodone/acetaminophen 5mg/325mg tablet PO PRN (14:00)
[2023-12-16] MEDS ORDERED: HYDROcodone/acetaminophen 10/325mg tab PO PRN (14:00)
== END 2023-12-16 17:00 | disposition home or self-care (01) ==
LOC: PAS 07:57 → SSTAY O 17:00
PROVIDERS: ATTEND Internal Medicine Cardiovascular Disease
DX: I25.119 Atherosclerotic heart disease of native coronary artery with unspecified angina pectoris (principal); I10 Essential (primary) hypertension; I48.91 Unspecified atrial fibrillation; E78.5 Hyperlipidemia, unspecified; Z95.1 Presence of aortocoronary bypass graft
CPT/HCPCS: 33285; 82948; 93005; 93459; 99152; 99153; C1764; J0780; J1170; J1644; J2250; J3010; J3490; J7030; J7070; Q0163; Q9967; A6258; C1725; C1760; C1894

== ENCOUNTER 2024-08-13 08:55 | Day surgery (SDC) | payer MEDICARE, MEDICAID ==
[~2024-08-13] VITALS: Ht 175.3 cm; Wt 102.3 kg
[~2024-08-13 08:55] MED LIST changes: -AMYL1CAP52 PO; +ATOR-2 PO; -ATOR20TA66 PO; +BACL5TAB PO; -CLOP75TA34 PO; +CYCL-920 PO; +FURO20TA4 PO; +HYDR-3686 PO; -HYDR-3965 PO; -ISOS30TA84 PO; +MELO-102 PO; +ONDA-243 PO; -ONDA4TAB12 PO; +PRAZ2CAP2 PO; +PREG75CA76 PO
[2024-08-13 09:13] VITALS: BP 175/73; PULSE 53; RESP 12; TEMP 98.8
[2024-08-13] MEDS ORDERED: midazolam 1 mg/ML 2ml injection ONE ×2 (09:39)
[2024-08-13] MEDS ORDERED: fentaNYL/PF 50MCG/1 ML 2ML syringe ONE (09:39)
[2024-08-13] MEDS ORDERED: propofol 10mg/ml 20ml vial IV ONE (09:42)
[2024-08-13 10:00] VITALS: BP 134/59; PULSE 54; RESP 10; O2SAT 100
[2024-08-13 10:08] VITALS: BP 141/64; PULSE 54; RESP 10; O2SAT 99
[2024-08-13 10:20] VITALS: BP 140/64; PULSE 50; RESP 14; O2SAT 95
== END 2024-08-13 10:25 | disposition home or self-care (01) ==
LOC: GI LAB 08:55
PROVIDERS: ATTEND Internal Medicine Gastroenterology
DX: K92.1 Melena (principal); K64.8 Other hemorrhoids; K57.30 Diverticulosis of large intestine without perforation or abscess without bleeding; I10 Essential (primary) hypertension; I25.119 Atherosclerotic heart disease of native coronary artery with unspecified angina pectoris; E78.5 Hyperlipidemia, unspecified; E66.9 Obesity, unspecified; F41.9 Anxiety disorder, unspecified; F43.10 Post-traumatic stress disorder, unspecified; I25.2 Old myocardial infarction; G47.33 Obstructive sleep apnea (adult) (pediatric); M19.90 Unspecified osteoarthritis, unspecified site; Z86.0100 Personal history of colon polyps, unspecified; Z86.73 Personal history of transient ischemic attack (TIA), and cerebral infarction without residual deficits; Z90.49 Acquired absence of other specified parts of digestive tract; Z95.1 Presence of aortocoronary bypass graft; Z98.890 Other specified postprocedural states; Z68.33 Body mass index [BMI] 33.0-33.9, adult; Z88.0 Allergy status to penicillin; Z91.018 Allergy to other foods
CPT/HCPCS: 45378; A4620; J2250; J2704; J3010; J7030; Z7512